=== PATIENT | female | born 2000 | race Caucasian/White ===

== ENCOUNTER 2024-03-12 19:27 | Emergency (ER) | payer SELFPAY ==
[~2024-03-12] VITALS: Ht 157.5 cm; Wt 55.0 kg
[2024-03-12 19:42] VITALS: BP 115/84; PULSE 82; RESP 18; TEMP 98.3; O2SAT 100
== END 2024-03-12 20:22 | disposition left against medical advice (07) ==
LOC: ER 19:27
DX: S81.812D Laceration without foreign body, left lower leg, subsequent encounter (principal); Z48.00 Encounter for change or removal of nonsurgical wound dressing; Z53.21 Procedure and treatment not carried out due to patient leaving prior to being seen by health care provider; X58.XXXD Exposure to other specified factors, subsequent encounter